=== PATIENT | male | born 1990 | race Caucasian/White ===

== ENCOUNTER 2024-02-03 23:56 | Emergency (ER) | payer MEDICAID ==
[~2024-02-03] VITALS: Ht 175.3 cm; Wt 100.0 kg
[~2024-02-03 23:56] MED LIST: CLON-353 PO; DIAZ10 PO; FOLI-130 PO; PANT-31 PO; THIA100T80 PO
[2024-02-03 23:59] VITALS: TEMP 98.1
[2024-02-04 00:57] LABS: EOSINOPHILS % (AUTO) 0.4 % (1.0-6.0); HEMATOCRIT 47.1 % (41-53); HEMOGLOBIN 15.8 g/dL (13.5-17.5); LYMPHOCYTES # (AUTO) 3.1 K/uL (1.0-4.8); LYMPHOCYTES % (AUTO) 42.4 % (22.0-44.0); MEAN CORPUSCULAR HEMOGLOBIN 28.8 pg (26.0-34.0); MEAN CORPUSCULAR HGB CONC 33.5 G/dL (31.0-37.0); MEAN CORPUSCULAR VOLUME 86 fL (80-100); MONOCYTES # (AUTO) 0.6 K/uL (0.1-1.0); MONOCYTES % (AUTO) 8.1 % (2.0-9.0); NEUTROPHILS # (AUTO) 3.6 K/uL (1.8-7.7); NEUTROPHILS % (AUTO) 48.1 % (40.0-70.0); PLATELET COUNT (AUTO) 261 K/uL (150-450); RED BLOOD CELL COUNT(AUTO) 5.47 MIL/uL (4.50-5.90); RED CELL DISTRIBUTION WIDTH 14.2 % (11.5-14.5); WHITE BLOOD COUNT (AUTO) 7.4 K/uL (4.5-11.0)
[2024-02-04] MEDS: PERMETHRIN 5% 60 GM CREAM TP ONE (01:02)
[2024-02-04] MEDS: SODIUM CHLORIDE 0.9% 1,000 ML IV ONE ×2 (01:02→02:10)
[2024-02-04 01:13] LABS: ALCOHOL, BLOOD (SERUM) 348 mg/dL (0-10)
[2024-02-04 01:15] LABS: ANION GAP 11 mmol/L (8-16); CALCIUM, TOTAL 9.7 mg/dL (8.8-10.5); CARBON DIOXIDE 30 mmol/L (22-29); CHLORIDE 96 mmol/L (98-107); CREATININE 1.08 mg/dL (0.60-1.30); GLOMERULAR FILTR. RATE CALC > 60 mL/min (>60); GLUCOSE,RANDOM 147 mg/dL (70-110); POTASSIUM 3.2 mmol/L (3.5-5.1); SODIUM SERUM 137 mmol/L (136-145); UREA NITROGEN, BLOOD 10 mg/dL (7-18)
[2024-02-04 01:23] LABS: TROPONIN I-HIGH SENSITIVITY 8 ng/L (<76)
[2024-02-04 01:24] LABS: B-TYPE NATRIURETIC PEPTIDE 7 pg/mL (0-100)
[2024-02-04 01:28] LABS: COVID AG,FIA SOURCE NASAL SWAB
[2024-02-04 01:37] LABS: SARS-COV2 (COVID) ANTIGEN,FIA Negative (Negative)
[2024-02-04 01:38] LABS: AMPHET/METH SCREEN,URINE NEGATIVE (NEGATIVE); BARBITURATE SCREEN, URINE NEGATIVE (NEGATIVE); BENZODIAZEPINES SCREEN,URINE NEGATIVE (NEGATIVE); CANNABINOID SCREEN,URINE POSITIVE (NEGATIVE); COCAINE SCREEN,URINE POSITIVE (NEGATIVE); METHADONE SCREEN, URINE NEGATIVE (NEGATIVE); OPIATE SCREEN,URINE NEGATIVE (NEGATIVE); PHENCYCLIDINE SCREEN,URINE NEGATIVE (NEGATIVE)
[2024-02-04 01:40] LABS: ALCOHOL, URINE DRUG SCREEN POSITIVE (NEGATIVE)
[2024-02-04 01:40] LABS: ALANINE AMINOTRANSFERASE 132 U/L (12-78); ALBUMIN 4.6 g/dL (3.4-5.0); ALKALINE PHOSPHATASE 123 U/L (46-116); ASPARTATE AMINOTRANSFERASE 96 U/L (15-37); CREATINE KINASE, TOTAL ONLY 451 U/L (39-308); PHOSPHORUS 3.6 mg/dL (2.5-4.9); TOTAL PROTEIN, SERUM 8.7 g/dL (6.4-8.2)
[2024-02-04] MEDS: POTASSIUM CHLORIDE 20 MEQ ER TABLET PO ONE (01:46)
[2024-02-04 01:59] LABS: LACTIC ACID 3.9 mmol/L (0.4-2.0)
[2024-02-04] MEDS: KETOROLAC TROMETHAMINE 30 MG/ML VIAL IVP ONE (05:04)
[2024-02-04 06:00] VITALS: BP 120/61; PULSE 97; RESP 18
== END 2024-02-04 06:15 | disposition home or self-care (01) ==
LOC: EMS 23:56
DX: F10.90 Alcohol use, unspecified, uncomplicated (principal); F14.90 Cocaine use, unspecified, uncomplicated; Z87.891 Personal history of nicotine dependence; Z20.822 Contact with and (suspected) exposure to COVID-19
CPT/HCPCS: 99285; 87426; 80053; 82550; 83605; 83735; 83880; 84100; 84484; 85025; 80307; 70450; 96374; 96361; 70486; 72125; 93005; 36415; G0480; J1885

== ENCOUNTER 2024-02-27 11:15 | Emergency (ER) | payer SELFPAY ==
[~2024-02-27] VITALS: Ht 175.3 cm; Wt 97.7 kg
[2024-02-27 11:28] VITALS: TEMP 98.4
[2024-02-27] MEDS: HYDROCODONE/ACETAMINOPHEN 5-325 MG TABLET PO ONE (12:45)
[2024-02-27] MEDS: LIDOCAINE 1% 10 ML VIAL ID ONE (12:46)
[2024-02-27] MEDS: PERTUSS(ACELL),DIPH,TET/PF 0.5 ML SYRINGE [ADULT] IM. ONE (12:47)
[2024-02-27 13:25] VITALS: BP 142/87; PULSE 89; RESP 18
== END 2024-02-27 14:19 | disposition home or self-care (01) ==
LOC: EMS 11:17
DX: S61.214A Laceration without foreign body of right ring finger without damage to nail, initial encounter (principal); F14.90 Cocaine use, unspecified, uncomplicated; Z87.891 Personal history of nicotine dependence; Z98.890 Other specified postprocedural states; W26.8XXA Contact with other sharp object(s), not elsewhere classified, initial encounter; Y93.89 Activity, other specified; Y92.89 Other specified places as the place of occurrence of the external cause; Y99.8 Other external cause status
CPT/HCPCS: 99283; 90715; 90471; 12001; J3490

== ENCOUNTER 2024-05-08 13:27 | Emergency (ER) | payer MEDICAID ==
[~2024-05-08] VITALS: Ht 175.3 cm; Wt 95.4 kg
[2024-05-08 13:29] VITALS: BP 151/88; PULSE 148; RESP 16; TEMP 97.5; O2SAT 96
[2024-05-08] MEDS ORDERED: IBUP-1492 PO (14:33)
[2024-05-08] MEDS ORDERED: HYDR-4062 PO (14:33)
[2024-05-08] MEDS: KETOROLAC TROMETHAMINE 30 MG/ML VIAL IM ONE (14:43)
== END 2024-05-08 15:01 | disposition home or self-care (01) ==
LOC: EMS 13:27
DX: S43.401A Unspecified sprain of right shoulder joint, initial encounter (principal); M79.601 Pain in right arm; W22.8XXA Striking against or struck by other objects, initial encounter; Y93.89 Activity, other specified; Y92.89 Other specified places as the place of occurrence of the external cause; Y99.8 Other external cause status
CPT/HCPCS: 99283; 73030; 93005; 96372; J1885

== ENCOUNTER 2024-07-05 00:12 | Emergency (ER) | payer MEDICAID ==
[~2024-07-05 00:12] MED LIST changes: -CLON-353 PO; -DIAZ10 PO; -FOLI-130 PO; +HYDR-4062 PO; +IBUP-1492 PO; -PANT-31 PO; -THIA100T80 PO
== END 2024-07-05 00:22 | disposition left against medical advice (07) ==
LOC: EMS 00:13
DX: F10.129 Alcohol abuse with intoxication, unspecified (principal); Z53.21 Procedure and treatment not carried out due to patient leaving prior to being seen by health care provider; Y90.9 Presence of alcohol in blood, level not specified

== ENCOUNTER 2025-02-12 09:48 | Emergency (ER) | payer MEDICAID ==
[~2025-02-12] VITALS: Ht 177.8 cm; Wt 93.0 kg
[2025-02-12 09:55] VITALS: TEMP 97.9
[2025-02-12 10:31] LABS: PLATELET COUNT (AUTO) 231 K/uL (150-450); RED BLOOD CELL COUNT(AUTO) 6.17 MIL/uL (4.50-5.90); RED CELL DISTRIBUTION WIDTH 14.1 % (11.5-14.5); WHITE BLOOD COUNT (AUTO) 3.7 K/uL (4.5-11.0)
[2025-02-12] MEDS: FAMOTIDINE 20 MG/2 ML VIAL IVP ONE (10:37)
[2025-02-12] MEDS: ONDANSETRON HCL 4 MG/2 ML VIAL IVP ONE (10:37)
[2025-02-12 10:38] LABS: CALCIUM, TOTAL 8.8 mg/dL (8.8-10.5); CREATININE 1.02 mg/dL (0.60-1.30); GLOMERULAR FILTR. RATE CALC > 60 mL/min (>60); GLUCOSE,RANDOM 140 mg/dL (70-110); SODIUM SERUM 141 mmol/L (136-145); UREA NITROGEN, BLOOD 8 mg/dL (7-18)
[2025-02-12] MEDS: ACETAMINOPHEN 500 MG TABLET PO ONE (10:38)
[2025-02-12] MEDS: SODIUM CHLORIDE 0.9% 1,000 ML IV ONE (10:38)
[2025-02-12] MEDS ORDERED: SODIUM CHLORIDE 0.9% 100 ML ONE (11:13)
[2025-02-12] MEDS ORDERED: 0.9% SODIUM CHLORIDE 10 ML SYRINGE IVP ONE (11:13)
[2025-02-12] MEDS ORDERED: IOHEXOL 350 MG/ML 100 ML VIAL ONE (11:13)
[2025-02-12] MEDS: MORPHINE SULFATE 2 MG/ML SYRINGE IVP ONE (11:51)
[2025-02-12 12:00] VITALS: BP 122/77; PULSE 76; RESP 18; O2SAT 98
[2025-02-12] MEDS ORDERED: IBUP-1492 PO (12:20)
[2025-02-12] MEDS ORDERED: ACET-3385 PO (12:20)
[2025-02-12] MEDS ORDERED: ONDA-104 PO (12:20)
[2025-02-12] MEDS: KETOROLAC TROMETHAMINE 30 MG/ML VIAL IVP ONE (12:45)
== END 2025-02-12 12:58 | disposition home or self-care (01) ==
LOC: EMS 09:48
DX: S00.83XA Contusion of other part of head, initial encounter (principal); F10.90 Alcohol use, unspecified, uncomplicated; Z98.890 Other specified postprocedural states; Z87.891 Personal history of nicotine dependence; Z79.899 Other long term (current) drug therapy; X58.XXXA Exposure to other specified factors, initial encounter; Y93.89 Activity, other specified; Y92.89 Other specified places as the place of occurrence of the external cause; Y99.8 Other external cause status; Y90.9 Presence of alcohol in blood, level not specified
CPT/HCPCS: 99285; 70450; 96374; 96375; 96361; 80048; 85025; 36415; 70486; 70498; J1885; Q9967; J3490; J2270; J2405; J7030; J7050

== ENCOUNTER 2025-02-14 19:53 | Emergency (ER) | payer MEDICAID ==
[~2025-02-14] VITALS: Ht 177.8 cm; Wt 95.5 kg
[~2025-02-14 19:53] MED LIST changes: +ACET-3385 PO; -HYDR-4062 PO; +ONDA-104 PO
[2025-02-14 20:12] VITALS: TEMP 98.6
[2025-02-14] MEDS: ONDANSETRON 4 MG TABLET PO ONE (20:53)
[2025-02-14 21:16] LABS: PLATELET COUNT (AUTO) 204 K/uL (150-450); RED BLOOD CELL COUNT(AUTO) 5.89 MIL/uL (4.50-5.90); RED CELL DISTRIBUTION WIDTH 13.3 % (11.5-14.5); WHITE BLOOD COUNT (AUTO) 6.2 K/uL (4.5-11.0)
[2025-02-14 21:22] LABS: CALCIUM, TOTAL 8.4 mg/dL (8.8-10.5); CREATININE 1.14 mg/dL (0.60-1.30); GLOMERULAR FILTR. RATE CALC > 60 mL/min (>60); GLUCOSE,RANDOM 107 mg/dL (70-110); SODIUM SERUM 138 mmol/L (136-145); UREA NITROGEN, BLOOD 12 mg/dL (7-18)
[2025-02-14 21:28] LABS: ASPARTATE AMINOTRANSFERASE 24.0 U/L (15-37); TOTAL PROTEIN, SERUM 7.6 g/dL (6.4-8.2)
[2025-02-14 21:32] VITALS: BP 128/91; PULSE 64; RESP 16; O2SAT 98
[2025-02-14] MEDS: SODIUM CHLORIDE 0.9% 1,000 ML IV ONE (22:44)
[2025-02-14] MEDS: PANTOPRAZOLE SODIUM 40 MG/VIAL IVP ONE (23:35)
[2025-02-15] MEDS ORDERED: PANT-31 PO (00:45)
[2025-02-15] MEDS: ONDANSETRON 4 MG TABLET PO ONE (01:45)
== END 2025-02-15 02:03 | disposition home or self-care (01) ==
LOC: EMS 19:55
DX: K29.20 Alcoholic gastritis without bleeding (principal); F10.90 Alcohol use, unspecified, uncomplicated; Z87.891 Personal history of nicotine dependence; Z79.899 Other long term (current) drug therapy; Z98.890 Other specified postprocedural states; Y90.9 Presence of alcohol in blood, level not specified
CPT/HCPCS: 99285; 96374; 76705; 96361; 80048; 80076; 85025; 36415; Q0162 ×2; J2470; J7030

== ENCOUNTER 2025-03-16 17:39 | Emergency (ER) | payer MEDICAID ==
[~2025-03-16] VITALS: Ht 175.3 cm; Wt 90.9 kg
[~2025-03-16 17:39] MED LIST changes: +PANT-31 PO
[2025-03-16 17:42] VITALS: TEMP 97.8
[2025-03-16 18:45] LABS: PLATELET COUNT (AUTO) 235 K/uL (150-450); RED BLOOD CELL COUNT(AUTO) 6.11 MIL/uL (4.50-5.90); RED CELL DISTRIBUTION WIDTH 13.8 % (11.5-14.5); WHITE BLOOD COUNT (AUTO) 6.1 K/uL (4.5-11.0)
[2025-03-16 18:51] LABS: CALCIUM, TOTAL 8.5 mg/dL (8.8-10.5); CREATININE 1.13 mg/dL (0.60-1.30); GLOMERULAR FILTR. RATE CALC > 60 mL/min (>60); GLUCOSE,RANDOM 126 mg/dL (70-110); SODIUM SERUM 139 mmol/L (136-145); UREA NITROGEN, BLOOD 10 mg/dL (7-18)
[2025-03-16 18:54] LABS: ALCOHOL, BLOOD (SERUM) 149.0 mg/dL (0-10)
[2025-03-16 18:57] LABS: ASPARTATE AMINOTRANSFERASE 31.0 U/L (15-37); TOTAL PROTEIN, SERUM 7.8 g/dL (6.4-8.2)
[2025-03-16] MEDS: ONDANSETRON HCL 4 MG/2 ML VIAL IM ONE (19:43)
[2025-03-16] MEDS: KETOROLAC TROMETHAMINE 30 MG/ML VIAL IM ONE (19:46)
[2025-03-16] MEDS: LIDOCAINE 5% TRANSDERMAL PATCH TD ONE (19:47)
[2025-03-16] MEDS ORDERED: ONDA-104 PO (21:02)
[2025-03-16 21:15] VITALS: BP 121/66; PULSE 92; RESP 18; O2SAT 99
== END 2025-03-16 21:45 | disposition home or self-care (01) ==
LOC: EMS 17:39
DX: K29.20 Alcoholic gastritis without bleeding (principal); R11.2 Nausea with vomiting, unspecified; R10.13 Epigastric pain; Z87.891 Personal history of nicotine dependence; Z98.890 Other specified postprocedural states; Z79.899 Other long term (current) drug therapy
CPT/HCPCS: 99284; 80048; 80076; 83690; 85025; 36415; 93005; 96372; J1885; G0480; J2405